=== PATIENT | female | born 1970 | race Caucasian/White ===

== ENCOUNTER → 2017-10-20 10:05 | Outpatient (CLI) | payer OTHER, SELFPAY ==
[2017-10-20 12:13] LABS: Color, Urine Yellow (Yellow); Glucose, Dipstick Normal (Normal); Ketone-Dipstick Negative (Negative); Leukocyte Esterase-Dipstick 100 /ul (Negative); Nitrite-Dipstick Negative (Negative); Occult Blood-Urine 10 /ul (Negative); Protein-Dipstick Negative (Negative); Urine Bilirubin Dipstick Negative (Negative); Urine Clarity Sl. Cloudy (Clear); Urine Urobilinogen Normal (Normal)
[2017-10-20 12:24] LABS: Protein, Urine (Random) 12.8 mg/dL (<11.9); Protein:Creat Ratio 151 mg/g CRE (0-200)
[2017-10-20 12:30] LABS: Absolute Lymphocyte Count 1.62 X10^3/ul (0.83-4.51); Absolute Neutrophil Count 3.9 X10^3/uL (2.0-7.7); Basophil# 0.02 X10^3/uL; Basophil% 0.3 % (0-1); Eosinophil# 0.25 X10^3/uL; Eosinophils% 4.1 % (0-5); Hematocrit 39.7 % (37-47); Hemoglobin 12.6 g/dl (12.0-15.0); Lymphocyte # 1.62 X10^3/ul (4.0); Lymphocyte % 26.6 % (19-41); Mean Corp Hgb Conc 31.7 g/gl (32-36); Mean Corpuscular Hgb 30.7 pg (27.0-32.0); Mean Corpuscular Volume 96.8 fL (81-99); Mean Platelet Vol. 10.8 fl (6.2-12.0); Monocyte# 0.33 X10^3/uL; Monocyte% 5.4 % (0-10); Neutrophil # 3.86 X10^3/uL (2.7-7.7); Neutrophil % 63.4 % (47-70); Platelet Count 213 K/mm3 (150-450); RBC Distribution Width CV 13.4 % (11.6-14.6); RBC Distribution Width SD 46.9 fl (35.1-43.9); White Blood Count 6.1 K/mm3 (4.4-11.0)
[2017-10-20 12:31] LABS: Erythrocyte Sedimentation Rate 16 mm/hr (0-20); POSITIVE COUNT NO; POSITIVE DIFFERENTIAL NO; POSITIVE MORPHOLOGY NO
[2017-10-20 12:33] LABS: ALB/GLOB Ratio 0.8 RATIO (0.9-2.4); AST(SGOT) 24 U/L (15-37); Alanine Aminotransfer ALT/SGPT 28 U/L (13-56); Albumin, Serum 3.3 g/dL (3.2-5.0); Alkaline Phosphatase 47 U/L (45-117); Anion Gap 7 (5-15); BUN 11 mg/dL (7-18); BUN/Creat Ratio 15.6 RATIO (10-20); CRP 5.61 mg/L (0.0-3.0); Calcium,Total 8.9 mg/dL (8.5-10.1); Chloride 106 mmol/L (98-107); EST Glomerular Filtration Rate 94 mL/min (>60); Est Glom Filt Rate - Afr Amer 114 mL/min (>60); Globulin 4.1 g/dL (2.2-4.2); Glucose 69 mg/dL (74-106); Potassium 3.9 mmol/L (3.5-5.1); Protein, Total 7.4 g/dL (6.4-8.2); Rheumatoid Factor < 10.0 IU/mL (<15); Sodium Level 141 mmol/L (136-145)
[2017-10-23 03:07] LABS: Complement C3 179 mg/dL (82-167)
[2017-10-23 10:45] LABS: CCP IgG Antibodies 10 units (0-19); HEPATITIS B SURFACE AG Negative (Negative); Hep B Surface Antibodies Non Reactive (.); Hep C Antibodies <0.1 s/co ratio (0.0-0.9)
[2017-10-23 20:09] LABS: Anti-Centromere B Ab <0.2 AI (0.0-0.9); Anti-Jo <0.2 AI (0.0-0.9); Anti-Scleroderma-70 AB <0.2 AI (0.0-0.9); RNP Ab 0.2 AI (0.0-0.9); SJOGREN'S Anti-SS-A test < 0.2 AI (0.0-0.9); SJOGREN'S Anti-SS-B test < 0.2 AI (0.0-0.9); Smith Ab <0.2 AI (0.0-0.9)
[2017-10-24 15:41] LABS: ANTINUCLEAR ANTIBODIES DIRECT Negative (Negative)
[2017-10-24 15:42] LABS: Anti-dsDNA Ab 6 IU/mL (0-9)
== END ==
PROVIDERS: Family Provider Family Medicine; PCP Family Medicine; Visit Provider Internal Medicine Rheumatology
DX: M06.4 Inflammatory polyarthropathy (principal); M79.7 Fibromyalgia; M51.37 Other intervertebral disc degeneration, lumbosacral region
CPT/HCPCS: 36415; 80053; 81002; 82570; 84156; 85025; 85652; 86038; 86140; 86160; 86200; 86225; 86235; 86431; 86706; 86803; 87340

== ENCOUNTER → 2018-01-30 14:25 | Outpatient (CLI) | payer OTHER, SELFPAY | PROVIDERS: Family Provider Family Medicine; PCP Family Medicine; Visit Provider Family Medicine | DX: E55.9 Vitamin D deficiency, unspecified (principal) | CPT/HCPCS: 36415; 82306 ==

== ENCOUNTER 2018-09-28 09:00 | Outpatient (RCR) | payer OTHER, SELFPAY ==
--- NOTE | 2018-08-08 10:57 | HP.PTEVAL_ITS ---
Patient's Visit Information RAMYA TAYLOR is a 48 year old F referred to Physical Therapy by CLARKE CORDOVA with a diagnosis of B shoulder and R knee pain vertigo. Date of Evaluation: 08/08/18 Physical Therapist: Ricky Casas, NATET, OCS, CSCS - Visit Plan Frequency: 3x /Week Duration: 4-6 Weeks Plan: 3x/week fro 3-6, start in pool for postural and B shoulder ROM flexiona dn IR, also B LE strength with emphasis on R knee and hip . Progress to I as patient is member adn may want land therapy after being in pool. Monitor need for postiional vertigo interventions. - Subjective Findings: Had veertigo for a couple weeks, went to ENT yesterday and did Eply and seems better. Was spinning all the time when she got out of bed or looked up or down or rolled. It seems to be gone since yesterday. Has history of migrainous vertigo and auditory migraines but this was different. Was on anti nausea meds but it has been 3 days since. Doesn't fall but doesn't feel real steady either. H/o proprioception problem but not lately.. Iv'e always been wired a little wierd. H/o FM. Also has B shoulder pain R>L for a few years. It feels weak. Reaching across body to pull shirt off hurts. Feels OK at neutral position. Likes support under arms. 1/10 is constant pain B, worse in the laast two years. 8/10 with lying on bed on side. Has had adjustments for a couple years to shoulders whcih helps some. Doing some rubber band stuff that she learned prior. Not improving. Hands have swollen for 18 months and has seen oncologist and rhumatologist adn painter sign maintenance but no rhumatoid factors in blood. Hasn't been able to lie on side due to vertigo adn hands haven't swollen. Shoulders don't feel better. No numbness or tingling but very weak. Hard to open jars. R knee was tweaked sledding down hill in May. Pulled leg out of lucia and felt tweak in R medial knee. Now whole knee hurts under knee cap. Adjustments at chiropractors help a little. Walked alot in [place] last week and had it wrapped which was worse. Hard to go up steps in [place] but all the walking made it better eventually. Sleep is interrupted due to shoulder pain. Rolls in bed causes knee pain but minimal lately due to vertigo. 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 knee hurts more sitting at [employer] Shoulders are not effected by jobs. Knee has been limiting at work in the past. Hobbies: work. Basic aDLS are OK. - Pain B shoulders Pain Intensity (Out of 10): 1 Pain Intensity Range: 1, 8 R medial knee pain Pain Intensity (Out of 10): 3 Pain Intensity Range: 0, 7 - Objective Posture is forward head and shoulders. Trasnfers adn gait are normal as is balance today. - B hallpike kalina and - roll test today. Did treat with R Maximiliano due to some dizzyness whcih was then abolished. c/s aROM WFL and hesitant to look up and down due to previous dizzyness but no pain. B shoulder aROM WFL but pain end range of flexion and tight in shoulders, also pain end range of IR on Right. strength shoulder 4- and only pain with flexiona dn ext rotation. reflexes 2/3 bi and tri and patella and achilles. sensation UE and LE WNL to gross light touch. + HK and neer on R, - ext rotation leg B, - labral b. B knee ROM WFL, pain end range of R knee ext adn flexion with OP, comfortable at rest. L knee WNL. reflexes 2/3 patella and achilles. Strength R knee 4/5 ext adn flexion , flexion gives medial knee pain, L knee 4+. Hip 4/5 strength B without pain, ankles 5/5 without pain. pecs B and quads mod tight, HS mod tight at -25 90/90 test B. - nt drawer and lachmans on R, - vlagus and varus, + bounce home R, - patellar grind but hesitant to contract R quad. No lag with SLR. - Balance Scores Functional Gait Assessment Score: 30 % Disability: 0 CATSIB Score (Max score 120 seconds): 120 - Goals Goal 1:: Full aROM shulders without pain, and knee end range motion without pain. Goal Time Frame: 4-6 Weeks Goal 2:: patient feel 75% overall with knee and shoulder pain and 100% abolishment of vertigo. Goal Time Frame: 4-6 Weeks Goal 3:: I approp HEP pool vs ex to maintain improvements without excess fatigue. Goal Time Frame: 4-6 Weeks Goal 4:: Pateint sleep without waking due to pain Goal Time Frame: 4-6 Weeks - Rehabilitation Potential Physical Therapy Diagnosis: Vertigo seems resolved, B shoulder pain impingement vs inflammatory factor, and R knee pain possibly meniscal in nature. Rehabilitation Potential: Fair - Anticipated Interventions Patient/Client Instruction: Educate patient on: Condition, Plan of Care For the Purpose of:: To decrease pain, To increase tolerance to activity/condition/position, To improve ability of physical actions for home/community/work/leisure Therapeutic Exercise to Include: Strength training, Flexibilty training, In an aquatic setting, Passive ROM, Active ROM For the Purpose of:: To decrease pain, To increase ROM, To increase tolerance to activity/condition/position, To improve ability of physical actions for home/community/work/leisure Manual Therapy Techniques to Include: Passive ROM Thank you for the opportunity to evaluate your patient. For Medicare and Medicare HMO plans, please review the plan of care and approve it. It will need to be FAXED BACK to us at [phone] for Medicare purposes. For Medicare only, by signing this I certify the plan of care. Please let me know if there are questions or concerns regarding this plan of care. Physician Signature: Date:____
--- NOTE | 2018-08-30 09:31 | HP.PTREVAL ---
CLARKE ART, It has been my pleasure to treat RAMYA TAYLOR over the last 5 visits for B shoulder and R knee pain vertigo. Please see the progress note below for an update on the physical therapy plan of care! Subjective: Enjoy the water. R knee is a lot better. L shoulder some better and R slightly better and can lift it a little easier. Times for pool therapy are not conducive to her schedule. Needs to implement land based ex as able. F/u with doctor 3x/week. R knee 85% better, L shoulder 50% and R shoulder 35%. pain in last week was in R shoulder 9/[address] waking up that way. Objective/Function: Full aROM R knee adn B shoulders. Some pain at end range of IR at both shoulders and elevation R>L. Knee rOM is fulla nd painfree. Subjectively improved but not I with exercises yet. Plan Plan: 2x/week for 3 weeks continue pool plan as she missed many visits. Needs to emphasiza postural, RC, scapular and LE stergnth and progress to I as she has a pool at home that she can continue in end September. Will consider machine based strength after I in pool. Goals Goal 1:: Full aROM shulders without pain, and knee end range motion without pain. Goal Time Frame: 4-6 Weeks Goal Progress: Progressing Goal 2:: patient feel 75% overall with knee and shoulder pain and 100% abolishment of vertigo. Goal Time Frame: 4-6 Weeks Goal Progress: Progressing Goal 3:: I approp HEP pool vs ex to maintain improvements without excess fatigue. Goal Time Frame: 4-6 Weeks Goal Progress: Progressing Goal 4:: Pateint sleep without waking due to pain Goal Time Frame: 4-6 Weeks Goal Progress: Progressing Anticipated Interventions Patient/Client Instruction: Educate patient on: Condition, Plan of Care For the Purpose of:: To decrease pain, To increase tolerance to activity/condition/position, To improve ability of physical actions for home/community/work/leisure Therapeutic Exercise to Include: Strength training, Flexibilty training, In an aquatic setting, Passive ROM, Active ROM For the Purpose of:: To decrease pain, To increase ROM, To increase tolerance to activity/condition/position, To improve ability of physical actions for home/community/work/leisure Manual Therapy Techniques to Include: Passive ROM Please do not hesitate to contact me at [phone] by phone or if you have questions or concerns regarding this new plan of care! Sincerely, Ricky Casas, DPT, OCS, CSCS
--- NOTE | 2018-09-28 09:28 | HP.PTDCSUM ---
HP - PT D/C Summary It has been my pleasure to treat RAMYA TAYLOR under orders from CLARKE CORDOVA, for the diagnosis of B shoulder and R knee pain vertigo for a total of 9 visit(s). Discharge Date: 09/28/18 Please see the following information for a summary of their discharge status. - Subjective Subjective: Doing exercises at home. R not as improved as left . Left 85% better adn right 50%. Pain in R shoulder is intermittent but to 8/10 with elevating or holding it out in front. Pain goes away after that activitiy. Doing pool exercises in her pool at home and rubber band strengthening at home daily. To doctor later today. Sleep is OK - Pain B shoulders Pain Intensity (Out of 10): 0 R medial knee pain Pain Intensity (Out of 10): 0 - Overall Improvement % Improvement: 60 - Objective Objective/Function: Full AROM but pain 8/10 end range Actvie flexion and IR, much less pain passively. Strength is 4/5 flexiona dn abd B. IR/ER 4/5. Moving functionally very well. Much better overall but still weak L >R - Goals Goal 1:: Full aROM shulders without pain, and knee end range motion without pain. Goal Progress: Progressing Goal 2:: patient feel 75% overall with knee and shoulder pain and 100% abolishment of vertigo. Goal Progress: Progressing Goal 3:: I approp HEP pool vs ex to maintain improvements without excess fatigue. Goal Progress: Goal Met Goal 4:: Pateint sleep without waking due to pain Goal Progress: Goal Met - Plan Plan: D/C - D/C Information Discharge Comments: Pt to continue ex on own in pool and with band and in gym. If there are questions or concerns regarding this patient's physical therapy, please feel free to call me at [phone]. Thank you for the referral of this patient. Sincerely, Ricky Casas, DPT, OCS, CSCS
== END 2018-09-28 19:00 | disposition home or self-care (01) ==
LOC: PT 09:00
PROVIDERS: Family Provider Family Medicine; PCP Family Medicine
DX: M25.561 Pain in right knee (principal); M25.511 Pain in right shoulder; M25.512 Pain in left shoulder; M25.612 Stiffness of left shoulder, not elsewhere classified; M25.619 Stiffness of unspecified shoulder, not elsewhere classified
CPT/HCPCS: 97113; 97162; 97530

== ENCOUNTER 2019-01-25 19:42 | Observation (INO) | payer OTHER, SELFPAY ==
[2019-01-25 19:43] VITALS: BP 119/43; PULSE 81; RESP 16; TEMP 36.7; O2SAT 98; BMI 30.4
[2019-01-25] MEDS: morphine 8 MG/ML Syringe SC (20:25)
[2019-01-25] MEDS: morphine 10 MG/ML Syringe 4 MG SC (21:20)
--- NOTE | 2019-01-25 21:50 | RAD_ITS ---
HISTORY:PAIN, NKI PAIN, NKI COMPARISON: None FINDINGS: # of images incl. paperwork: 2 XR Shoulder Min 2 Views: Left BONE AND JOINTS: No acute fracture or subluxation. Calcifications seen in the region of the rotator cuff insertion suspect for calcific tendinitis SOFT TISSUES: Unremarkable. No radiopaque foreign body. RAD/Shoulder min 2 Views IMPRESSION: Suspect calcific tendinitis at 2206 Reported and signed by: Lynda Estrada DO Electronically Signed: Lynda Estrada DO at 22:04 EDT Tel , Service support ,
--- NOTE | 2019-01-25 22:30 | ED.DCSUM_ITS ---
History of Present Illness Chief Complaint: Upper Extremity Injury Narrative: Patient presenting to the emergency department secondary to left shoulder pain. Patient reports that over the course of approximately the last year she has been dealing with pain in her left shoulder. She actually went through a prolonged c ourse of physical therapy, get somewhat better. Patient states that recently she was carrying something in her left hand and felt as if she made it worse. There was not a specific pop or injury associated with it, but today she is having such severe pain that she feels that she is basically unable to move her left arm. No radiation of the pain really. No numbness or weakness associated with it. Patient did take some pain medication at home did not really seem to alleviate her symptoms. Review of systems otherwise negative. Past Medical History - Allergies and Home Meds Allergies/Adverse Reactions: Allergies amoxicillin trihydrate [From Augmentin] Adverse Reaction (Verified 01/25/19 19:44) Vomiting cefuroxime axetil [From Ceftin] Adverse Reaction (Verified 01/25/19 19:44) Vomiting levofloxacin [From Levaquin] Adverse Reaction (Verified 01/25/19 19:44) Vomiting potassium clavulanate [From Augmentin] Adverse Reaction (Verified 01/25/19 19:44) Vomiting Past Medical History: - - Fibromyalgia Smoking Status: Never smoker - Family History Maternal Family History: Reports: - - Some vestibular problem of dizziness Review of Systems All systems negative except as indicated General: Denies: Fever Musculoskeletal: Reports: Extremity Pain Physical Exam Vital Signs/Narrative: Vital Signs Temp Pulse Resp BP Pulse Ox 01/25/19 19:43 98.1 F 81 16 119/43 L 98 Inital Vital Signs reviewed: Yes General: Well nourished, Well developed, No Acute Distress Head: Normocephalic, Atraumatic Eyes: Perrl, EOMI ENT: Moist mucous membranes, No rhinorrhea Neck: Supple, Nontender, - - Normal range of motion, nontender Cardiovascular: Regular rate, Regular rhythm, No murmurs, - - Normal radial pul ses Respiratory: No distress, CTA bilaterally, Chest nontender Abdomen: Soft, Nontender, Nondistended, Normal bowel sounds Extremities: - - Left shoulder exam shows tenderness palpation of the anterior and posterior joint line with no evidence of warmth or erythema over the joint. Limited range of motion secondary to pain. Unable to assess the patient's rotator cuff due to limited range of motion Skin: Normal color Neurological: Alert, Oriented x3 Psychological: Normal affect Diagnostic/Tx/Re-eval Chest X-Ray - ED: - - Left shoulder x-ray 2 views by my personal interpretation as well as radiology shows calcific tendinosis - EKG Initial EKG Interpretation: - - A. fib with a ventricular rate of [address] changes, no evidence of ST elevation, diffuse T wave flattening. - Medical Decision Making Patient presented secondary to left shoulder pain. This seems clearly musculoskeletal, patient was refusing to get x-rays until she was medicated. She was given 8 mg of subcutaneous morphine, and was still having a significant amount of pain after she was allowed to sit for about 45 minutes. She was given a subsequent 4 mg. Ultimately she had some improvement of her pain to the point where we were able to get x-rays which demonstrated evidence of calcific tendinosis. Patient at this time was going to be dispositioned to home with a course of Percocet for treatment of pain and follow-up with orthopedics. When the patient was transitioning from the bed to get up to be discharged, she started to suddenly feel significantly lightheaded, passed out, and vomited all over the place. IV was established laboratory studies were obtained an EKG was obtained at that point, patient was actually found to be in a new onset of atrial fibrillation. Patient's laboratory work-up including CBC chemistry and troponin were found to be negative. Due to the patient's new onset of atrial fibrillation I believe she requires admitted. I will discuss this with the hospitalist. ED Disposition - Plan for ED Patient: Disposition: Acute Care [facility] Diagnosis: Calcific tendonitis, Afib, Syncope
--- NOTE | 2019-01-25 23:04 | EKG12_ITS ---
Test Reason : DYSRHYTHMIA Blood Pressure : / mmHG Vent. Rate : 097 BPM Atrial Rate : 097 BPM P-R Int : 000 ms QRS Dur : 086 ms QT Int : 342 ms P-R-T Axes : 000 047 -76 degrees QTc Int : 434 ms Atrial fibrillation Nonspecific ST and T wave abnormality Abnormal ECG Confirmed by BRUNILDA FUENTES, IRENA ([id number]), loan expeditor DIONY CONTRERAS ([id number]) on 01/28/2019 8:53:03 AM Referred By: MR Confirmed By:IRENA WORLEY MD
[2019-01-25] MEDS: Ondansetron ODT 4 MG Tablet PO (23:14)
[2019-01-25 23:15] VITALS: BP 124/95; PULSE 100; RESP 16; O2SAT 96
[2019-01-25] MEDS: 0.9% Normal Saline 1,000 ML 1000 ML IV (23:41)
[2019-01-25] MEDS: Ondansetron 4 MG/2 ML Vial IV (23:42)
[2019-01-25 23:44] LABS: Absolute Lymphocyte Count 2.99 X10^3/uL (0.83-4.51); Basophil# 0.06 X10^3/uL; Basophil% 0.6 % (0-1); Eosinophil# 0.59 X10^3/uL; Eosinophils% 6.2 % (0-5); Hemoglobin 13.3 g/dL (12.0-15.0); Lymphocyte # 2.99 X10^3/ul (4.0); Lymphocyte % 31.2 % (19-41); Mean Corp Hgb Conc 32.4 g/dL (32-36); Mean Corpuscular Hgb 31.4 pg (27.0-32.0); Mean Corpuscular Volume 96.9 fL (81-99); Mean Platelet Vol. 10.5 fl (6.2-12.0); Monocyte% 9.4 % (0-10); NRBC Flagged by Analyzer 0 % (0-5); Neutrophil # 5.01 X10^3/uL (2.7-7.7); Neutrophil % 52.3 % (47-70); Platelet Count 209 K/mm3 (150-450); RBC Distribution Width CV 12.7 % (11.6-14.6); RBC Distribution Width SD 45.2 fl (35.1-43.9); Red Blood Count 4.23 M/mm3 (4.2-5.4); White Blood Count 9.6 K/mm3 (4.4-11.0)
[2019-01-26] VITALS (20 sets, daily range): BP systolic 99–126; BP diastolic 65–90; PULSE 94–135; RESP 14–23; TEMP 36.8–37.1; O2SAT 95–99; BMI 32.9
[2019-01-26 00:06] LABS: Anion Gap 7 (5-15); BUN 15 mg/dL (7-18); Chloride 108 mmol/L (98-107); Creatinine, Serum 0.75 mg/dL (0.55-1.02); EST Glomerular Filtration Rate 87 mL/min (>60); Est Glom Filt Rate - Afr Amer 105 mL/min (>60); Estimated Creatinine Clearance 91.53 ml/min; Glucose 147 mg/dL (74-106); Potassium 3.8 mmol/L (3.5-5.1); Sodium Level 142 mmol/L (136-145)
[2019-01-26] MEDS: proMETHazine 25 MG/ML Syringe 12.5 MG IM (00:28)
--- NOTE | 2019-01-26 00:34 | HP.PCM_ITS ---
Problem List (1) Afib Status: Acute History of Present Illness Date of Admission: 01/26/19 Chief Complaint: left shoulder pain The patient is a 48 year old F significant history of chronic pancreatitis; and autoimmune disease who presented to the emergency department with excruciating left shoulder pain that started about 4 days ago. Her pain increases with mild activity and improves somewhat with rest. She has had this pain for 2 years and sees a chiropractor. The chiropractor referred her to physical therapy that she has been doing at [facility]. Indeed she has a bilateral shoulder pain but it is the pain at the left shoulder that has flared up. Patient is scheduled to see an orthopedic surgeon. At the emergency department x-ray was suspicious for calcific tendinitis. Patient received morphine sulfate 12 mg by subcutaneous route. Thereafter the patient passed out; vomited and went into A. fib. Past Medical History Medical History: Medical History (Last Reviewed 01/26/19 @ 05:40 by Maximus Ibarra MD) Chronic pancreatitis K86.1 Allergies amoxicillin trihydrate [From Augmentin] Adverse Reaction (Verified 01/25/19 19: 44) Vomiting cefuroxime axetil [From Ceftin] Adverse Reaction (Verified 01/25/19 19:44) Vomiting levofloxacin [From Levaquin] Adverse Reaction (Verified 01/25/19 19:44) Vomiting potassium clavulanate [From Augmentin] Adverse Reaction (Verified 01/25/19 19:44) Vomiting Home Medications: Ambulatory Orders Medication Instructions Recorded Hydrocodone Bitart/Apap 5-325 1 tab PO Q6H PRN PRN 3 Days #12 tab 01/25/19 [[place] 5MG-325MG] Surgical History: tonsillectomy, - - section Lives: Spouse/ Significant Other Smoking Status: Never smoker - *Family History Maternal History Items: Cancer - breast, - - Some vestibular problem of dizziness Paternal History Items: - - Patient does not know her father and she does not know her paternal medical history. Review of Systems Constitutional: Denies: Chills, Fever, Weight Change HEENT: Denies: Head Aches, Sinus Congestion, Sinus Drainage Cardiovascular: Reports: Light Headedness, Syncope. Denies: Chest Pain, Palpitations Respiratory: Denies: Cough, Shortness of breath at rest, Sputum production Gastrointestinal: Reports: Nausea, Vomiting. Denies: Abdominal Pain Genitourinary: Denies: Dysuria Musculoskeletal: Reports: Joint Pain, Joint Tenderness, Shoulder Pain Skin: Denies: Rash, Wounds Neurological: Denies: Numbness, Tingling, Focal weakness Psychiatric: Denies: Anxiety, Depression, Homicidal Ideations, Suicidal Ideations Hematologic/ Lymphatic: Denies: Easy Bruising, Easy Bleeding VTE Information - Inpt Only VTE Present on Admission: No VTE Mechan Device Prophylaxis: None VTE Pharm Prophylaxis ordered?: Yes Patient Problems: Active and Suspected Problems Calcific tendonitis (Acute) Afib (Acute) Syncope (Acute) - Physical Exam General: Alert, Oriented x3, Cooperative HEENT: Atraumatic, PERRLA, EOMI, Normocephalic Neck: Supple, No JVD, Negative Carotid Bruits Lungs: Clear to auscultation, Normal air movement, No rhonchi, No wheeze, No rales Cardiovascular: Normal S1, Normal S2, No murmurs, Irregular Rate, Tachycardic Abdomen: Bowel Sounds Present, Soft, Non Tender Extremities: No edema, Capillary Refill Less than 3 Seconds, Tenderness - left shoulder Skin: No rashes, No breakdown Musculoskeletal: Tenderness - left shoulder Neurological: Cranial nerves II-XII grossly intact Psych/Mental Status: Anxious Vital Signs Temp Pulse Resp BP Pulse Ox 98.1 F 100 16 124/95 H 96 01/25/19 19:43 01/25/19 23:15 01/25/19 23:15 01/25/19 23:15 01/25/19 23:15 Oxygen Delivery Method Room Air Weight: 90.718 kg Body Mass Index (BMI) 30.4 Laboratory Tests Past 24 Hrs 01/25/19 01/25/19 23:35 23:35 WBC 9.6 RBC 4.23 Hgb 13.3 Hct 41.0 MCV 96.9 MCH 31.4 MCHC 32.4 RDW Std Deviation 45.2 H RDW Coeff of Xavier 12.7 Plt Count 209 MPV 10.5 Immature Gran % (Auto) 0.300 Neut % (Auto) 52.3 Lymph % (Auto) 31.2 [place] % (Auto) 9.4 Eos % (Auto) 6.2 H Baso % (Auto) 0.6 Absolute Neuts (auto) 5.0 Absolute Lymphs (auto) 2.99 Nucleated RBC % 0 Sodium 142 Potassium 3.8 Chloride 108 H Carbon Dioxide 27.0 Anion Gap 7 BUN 15 Creatinine 0.75 Estim Creat Clear Calc 91.53 Est GFR (MDRD) Af Amer 105 Est GFR (MDRD) Non-Af 87 BUN/Creatinine Ratio 20.0 Glucose 147 H Calcium 9.0 Troponin I < 0.015 Assessment/Plan All Active Problems Calcific tendonitis (Acute) Afib (Acute) Syncope (Acute) The patient is a 48 year old F significant history of chronic pancreatitis; and autoimmune disease who presented to the emergency department with excruciating left shoulder pain; and radiographic imaging concerning for calcific tendinitis and who passed out and vomited after morphine subcutaneous injection and was found to be in atrial fibrillation. Atrial fibrillation with rapid ventricular response. Initially patient was in controlled A. fib but later she went into A. fib with rapid ventricular response. Patient thinks that her A. fib is because of the pain and declined any rate controlled medications. Her [id number] score is 1 (female); 0.6% stroke risk per year. Will start patient on aspirin. We will get an echocardiogram. Magnesium level returned unremarkable. TSH was elevated; will check free T4. Calcific tendinitis of the right shoulder PRN [place] ordered. Which are away from morphine because of nausea vomiting and A. fib. PRN Zofran and bowel protocol ordered. Orthopedic consult. Syncope Likely because of A. fib Management as in A. fib. DVT prophylaxis Subcutaneous Lovenox Code Visit Inpatient E&M: 95140 Init Hosp L3
--- NOTE | 2019-01-26 02:49 | ECHOD_ITS ---
Reason For Study: A. fib Procedure This was a 2D Doppler, Color Flow transthoracic echocardiogram. Patient scanned supine due to severe left shoulder pain. Exam performed portable in patient room. Left Ventricle Normal LV size. Left ventricular systolic function is normal. The estimated ejection fraction is 60 %. Unable to assess diastolic dysfunction due to arrhythmia. No regional wall motion abnormalities noted. Right Ventricle Normal RV size. Normal systolic function. Atria Normal left atrium. Normal right atrium. Mitral Valve Normal mitral valve. Tricuspid Valve Normal tricuspid valve. Mild tricuspid valve insufficiency. Pulmonary artery systolic pressure is 20 mmHg. Aortic Valve The aortic valve is not well visualized. Pulmonic Valve Normal pulmonic valve. Great Vessels Normal aortic root. The pulmonary artery is normal size. Normal inferior vena cava. Pericardium/Pleural No pericardial effusion. MMode/2D Measurements & Calculations LVIDd: 4.7 cm IVSd: 0.80 cm Ao root diam: 3.1 cm LVIDs: 2.9 cm LVPWd: 0.85 cm RVDd: 3.0 cm FS: 37.3 % LAV(MOD-bp): 34.1 ml LA A4 area: 12.2 cm2 LA dimension(2D): 3.6 cm LAV(MOD-bp) Indexed: 16.2 ml/m2 LAV(MOD-sp2): 41.4 ml LAV(MOD-sp4): 26.6 ml RA A4 area: 11.5 cm2 Doppler Measurements & Calculations MV E max kingsley: 81.8 cm/sec Ao V2 max: 139.0 cm/sec LV V1 max: 112.1 cm/sec Ao max P.8 mmHg LV V1 max P.0 mmHg PA V2 max: 94.3 cm/sec TR max kingsley: 201.2 cm/sec TR max P.3 mmHg Interpretation Summary Normal LV size. Left ventricular systolic function is normal. The estimated ejection fraction is 60 %. Unable to assess diastolic dysfunction due to arrhythmia. Mild tricuspid valve insufficiency. Ordering Physician: Maximus Ibarra Referring Physician: Miguel Pritchett Performed By: Aixa Bush RDCS
[2019-01-26] MEDS: 0.9% Normal Saline 1,000 ML 75 ML IV (03:36)
[2019-01-26 03:38] LABS: Magnesium 2.2 mg/dL (1.6-2.6)
--- NOTE | 2019-01-26 05:52 | NURSING ---
I discussed with Dr. Ibarra patient's increasing heart rate and A-Fib RVR. Dr. Ibarra stated that the patient told him that she does not want any rate control drugs. I talked to the patient about this and she stated that she was prescribed nadolol in the past for occipital migraines and it caused muscle pain. I discussed this with the patient and she is agreeable to trying cardizem for rate control. I notified Dr. Ibarra of this and he stated that he will order the cardizem bolus. Mili tellez RN notified as well.
[2019-01-26] MEDS: dilTIAZem 25 MG/5 ML Vial 10 MG IV BOLUS (05:59)
[2019-01-26 06:41] LABS: T4 Free Direct 1.09 ng/dL (0.76-1.46)
[2019-01-26] MEDS: Ondansetron 4 MG/2 ML Vial IV (06:41)
--- NOTE | 2019-01-26 08:30 | PN_ITS ---
Progress Note This is a 48 years old female patient presented to the emergency room because of left shoulder pain. She had a history of left shoulder pain for more than 2 years, has been undergoing physical therapy as outpatient and her pain resolved. The last 4 to 6 weeks, she started having this shoulder pain again which got worse yesterday and she came to the emergency department. This morning, she states that her shoulder pain improved but still there. She denies any chest pain or shortness of breath. She did mention that she has been having pa lpitations and irregular heartbeats for the last 2 years but apparently, no one paid attention to it. Yesterday, she received 12 mg of morphine and when she stood up, she passed out. This morning, she is still in A. fib, heart rate is fluctuating significantly, blood pressure stable. Her EKG revealed A. fib, no acute ischemic changes. Troponin was negative. X-ray of the left shoulder revealed suspected calcific tendinitis, no fractures or dislocations. 2D echocardiogram ordered. This morning at 6 AM, she received 1 dose of IV Cardizem bolus but heart rate remained high. Plan: Start metoprolol 12.5 mg p.o. twice daily, awaiting orthopedic surgery recommendations, cardiology consult.
--- NOTE | 2019-01-26 09:35 | CON.PCM_ITS ---
Problem List (1) Afib Status: Acute Qualifiers: Atrial fibrillation type: paroxysmal Qualified Code(s): I48.0 - Paroxysmal atrial fibrillation (2) Vitamin D deficiency Status: Chronic (3) Fibromyalgia Status: Chronic (4) Chronic pancreatitis Status: Chronic (5) Intermittent diarrhea Status: Chronic (6) Vitamin B12 deficiency (dietary) anemia Status: Acute (7) GERD (gastroesophageal reflux disease) Status: Chronic Reason for Consult Date of Consultation: 01/26/19 Reason for Consultation: PAROXYSMAL ATRIAL FIB History of Present Illness: The patient is a 48 year old F with medical history significant for to have history of arthritis involving the left shoulder informs me that she has seen 2 different rheumatologists in clinic clinic in the past she was advised to consider dog start taking methotrexate by one musical instrument supervisor but she was reluctant to consider that option as her ANAs were unremarkable and subsequently went to see a second musical instrument supervisor who advised her not to contradict any disease modifying agents but recommended her to undergo water exercises. Patient was also referred to see a functional medicine at [facility] who diagnosed her to have chronic pancreatitis and fibromyalgia. Complaint for the last 2 to 3 days prior to this hospitalization she was having increased flareup of her pain the left shoulder joint and last evening when her came home she was quite sick pain and patient was brought to the emergency room. In the ER patient received a total of 8 mg of morphine subcutaneously and shortly thereafter when she was able to be discharged home she had an episode of near syncope and the EKG showed evidence of atrial fibrillation with ventricular response close to 92-100 beats a minute and for this reason she was admitted to the hospital for further work-up of near syncope and new atrial fibrillation. History of having palpitations intermittently for the last few years but there is no formal diagnosis of atrial fibrillation made in the past she informs me that she did had a stress test at 20 years of age and a Holter at that time as she was having symptoms of palpitations and that was when she moved from [facility] to [place] and her father was sick and that made her quite anxious with the stress of situation causing her palpitations . 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 Prior episodes of syncope or near syncopal episodes admits that she does have symptoms of diarrhea in the past which was the cause for diagnosing IBS but subsequently that was rediagnosed as congruent chronic pancreatitis and patient has been taking pancreatic supplements for the last few weeks that is given through the functional medicine at [facility] and with that her bowels are more regulated she informed him that she was diagnosed to have low vitamin B12 as well as low vitamin D and has been taking multiple supplements that was recommended from the functional medicine clinic Past Medical History Allergies/Adverse Reactions: Allergies amoxicillin trihydrate [From Augmentin] Adverse Reaction (Verified 01/25/19 19:44) Vomiting cefuroxime axetil [From Ceftin] Adverse Reaction (Verified 01/25/19 19:44) Vomiting levofloxacin [From Levaquin] Adverse Reaction (Verified 01/25/19 19:44) Vomiting potassium clavulanate [From Augmentin] Adverse Reaction (Verified 01/25/19 19:44) Vomiting Home Medications: Ambulatory Orders Medication Instructions Recorded Hydrocodone Bitart/Apap 5-325 1 tab PO Q6H PRN PRN 3 Days #12 tab 01/25/19 [[place] 5MG-325MG] Past Medical History (Chronic Problems): Chronic Problems (Last Reviewed 01/26/19 @ 05:40 by Maximus Ibarra MD) Vitamin D deficiency (Chronic) Fibromyalgia (Chronic) Chronic pancreatitis (Chronic) Intermittent diarrhea (Chronic) GERD (gastroesophageal reflux disease) (Chronic) Surgical History: tonsillectomy, - - section - *Family History Paternal History Items: - - Patient does not know her father and she does not know her paternal medical history. Maternal History Items: Cancer - breast, - - Some vestibular problem of dizziness Lives: Spouse/ Significant Other Smoking Status: Never smoker Tobacco Use: Non-smoker Objective: Vital Signs Temp Pulse Resp BP Pulse Ox 98.6 F 115 H 15 107/74 96 01/26/19 06:28 01/26/19 07:00 01/26/19 06:28 01/26/19 06:28 01/26/19 06:28 Oxygen Delivery Method Room Air Weight: 216 lb 7.903 oz Body Mass Index (BMI) 32.9 Intake and Output for Last 24 Hours 01/24/19 01/25/19 01/26/19 23:59 23:59 23:59 Intake Total 1120 / 1120 Balance 1120 / 1120 01/25/19 23:35: WBC 9.6, RBC 4.23, Hgb 13.3, Hct 41.0, MCV 96.9, MCH 31.4, MCHC 32.4, Plt Count 209, MPV 10.5, Immature Gran % (Auto) 0.300, Neut % (Auto) 52.3, Lymph % (Auto) 31.2, [place] % (Auto) 9.4, Eos % (Auto) 6.2 H, Baso % (Auto) 0.6, Absolute Neuts (auto) 5.0, Nucleated RBC % 0 01/25/19 23:35: Sodium 142, Potassium 3.8, Chloride 108 H, Carbon Dioxide 27.0, Anion Gap 7, BUN 15, Creatinine 0.75, Est GFR (MDRD) Af Amer 105, Est GFR (MDRD) Non-Af 87, BUN/Creatinine Ratio 20.0, Glucose 147 H, Calcium 9.0, Troponin I < 0.015 01/25/19 23:35: Magnesium 2.2 Rhythm: EKG: ECHO:Interpretation Summary Normal LV size. Left ventricular systolic function is normal. The estimated ejection fraction is 60 %. Unable to assess diastolic dysfunction due to arrhythmia. Mild tricuspid valve insufficiency. Stress Test: Cardiac Cath: PCI: CT Surgery: Holter monitor: EPS: PPM: CXR: Chest CT Scan: Assessment/Plan #1 atrial fibrillation Proxysmal-start the patient on long-acting Toprol-XL 50 mg once a day see how she responds to with her ventricular response and I do agree that she has lone atrial fibrillation and see no indication to start her on systemic oral anticoagulation. If her rate is well controlled remains in atrial fibrillation consider chemical cardioversion with IV ibutilide after assuring her serum potassium and magnesium levels are within normal limits. Her echocardiogram performed today showed normal systolic function with no significant valvular abnormalities and there is no evidence for mitral valve prolapse or mitral regurgitation. 2. arthritis of the left shoulder joint for which orthopedic surgery was consulted and pending at the time of this evaluation. 3. Pancreatitis -chronic stable Code Visit Office Visits / Consults: [id number] OV L5 Est
[2019-01-26] MEDS: Ketorolac 30 MG/ML Syringe IV (10:41)
[2019-01-26] MEDS: Metoprolol(XL)Succ 50 MG Tablet PO (11:02)
[2019-01-26] MEDS: Aspirin 81 MG TAB.CHEW PO (11:02)
[2019-01-26 11:39] LABS: Free T3 1.9 pg/mL (2.18-3.98); T4 Total, Thyroxin 11.3 ug/dL (4.8-13.9)
[2019-01-26] MEDS: Enoxaparin 40 MG/0.4 ML Syringe SC (12:55)
[2019-01-26] MEDS: Naproxen 250 MG Tablet PO ×2 (12:56→21:51)
[2019-01-26] MEDS: Famotidine 20 MG Tablet PO ×2 (12:56→21:51)
--- NOTE | 2019-01-26 16:44 | CON.PCM_ITS ---
Reason for Consult Date of Consultation: 01/26/19 History of Present Illness: The patient is a 48 year old female with a history of bilateral shoulder pain for greater than 2 years. Her left and right shoulder have both hurt severely intermittently. She has seen a chiropractor multiple times. In July 2018 she has been started at [facility]. She was doing some better. Patient has been diagnosed with fibromyalgia, autoimmune disease. She has been seen at the [facility] at a [facility]. 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 She states that her symptoms have been worse since December. She quit doing much therapy and started being more active. This past Monday after trying on some sweaters she developed severe left shoulder pain. By it was severe. She did have an appointment with our office in 2 and half weeks. She did have an appointment with Dr. Hook on Monday. Patient came into the hospital last evening with severe left shoulder pain. She was given morphine. She developed nausea and vomiting. She had a near syncopal episode. She was found to be in atrial fibrillation. She was admitted to the hospital. Orthopedics was consulted. Dr. Hook reportedly would not see the patient until tomorrow, Monday, despite being prior authorization nurse. Patient's called me directly. I was able to see the patient today. Ultimately the hospitalist change the consult to me. Patient denies fevers or chills. Notes her left shoulder is stiff and catches. Dates her pain was 20 out of 10. Currently much better. Seemingly the Toradol IV as well as p.o. naproxen have been helping. She states narcotics make her nauseated [] Past Medical History Past Medical History (Chronic Problems): Chronic Problems (Last Reviewed 01/26/19 @ 05:40 by Maximus Ibarra MD) Vitamin D deficiency (Chronic) Fibromyalgia (Chronic) Chronic pancreatitis (Chronic) Intermittent diarrhea (Chronic) GERD (gastroesophageal reflux disease) (Chronic) Medical History: Medical History (Last Reviewed 01/26/19 @ 05:40 by Maximus Ibarra MD) Chronic pancreatitis K86.1 Allergies amoxicillin trihydrate [From Augmentin] Adverse Reaction (Verified 01/25/19 19:44) Vomiting cefuroxime axetil [From Ceftin] Adverse Reaction (Verified 01/25/19 19:44) Vomiting levofloxacin [From Levaquin] Adverse Reaction (Verified 01/25/19 19:44) Vomiting potassium clavulanate [From Augmentin] Adverse Reaction (Verified 01/25/19 19:44) Vomiting Home Medications: Ambulatory Orders Medication Instructions Recorded Hydrocodone Bitart/Apap 5-325 1 tab PO Q6H PRN PRN 3 Days #12 tab 01/25/19 [[place] 5MG-325MG] Surgical History: tonsillectomy, - - section Lives: Spouse/ Significant Other Smoking Status: Never smoker Tobacco Use: Non-smoker - *Family History Paternal History Items: - - Patient does not know her father and she does not know her paternal medical history. Maternal History Items: Cancer - breast, - - Some vestibular problem of dizziness Review of Systems Constitutional: Reports: Weakness, Fatigue HEENT: Reports: Head Aches Cardiovascular: Reports: Palpitations Respiratory: Denies: Cough, Shortness of breath at rest, Sputum production Gastrointestinal: Reports: Nausea, Vomiting Genitourinary: Denies: Dysuria Musculoskeletal: Reports: Joint Pain, Shoulder Pain Skin: Denies: Rash, Wounds Neurological: Reports: Numbness Psychiatric: Denies: Anxiety, Depression, Homicidal Ideations, Suicidal Ideations Hematologic/ Lymphatic: Denies: Easy Bruising, Easy Bleeding Patient Problems: Active and Suspected Problems (Last Reviewed 01/26/19 @ 05:40 by Maximus Ibarra MD) Calcific tendonitis (Acute) Afib (Acute) Syncope (Acute) Vitamin B12 deficiency (dietary) anemia (Acute) Objective: Patient was seen with her present. Patient has pain on palpation of the left shoulder anteriorly laterally posteriorly. She has more tenderness posterior lateral. No bruising swelling or abnormal masses noted. Normal contour of the shoulders. Right shoulder has near full range of motion with some pain. Left shoulder has active forward elevation 10, external rotation 0. Passively I can forward elevate her 160. Passively I can externally rotate her 20. Negative drop arm test. She has weakness at the left shoulder because of pain. Mild weakness of the right shoulder because of pain. She had no pain at the elbow wrist or fingers. Normal sensation. Normal strength at the wrist finger and elbows. Normal pulses. No pain at the cervical spine. Mild bilateral trapezius pain. No instability noted at the shoulders. Negative sulcus sign. Laboratory work reviewed X-rays reviewed AP and lateral left shoulder shows rounded calcifications at the posterior lateral shoulder, rotator cuff region. No severe glenohumeral joint arthritis. No severe acromioclavicular joint arthritis. No obvious acute fractures or dislocations. Note from hospitalist reviewed - Physical Exam Vital Signs Temp Pulse Resp BP Pulse Ox 98.6 F 116 H 15 108/76 96 01/26/19 06:28 01/26/19 11:02 01/26/19 06:28 01/26/19 11:02 01/26/19 15:52 Oxygen Delivery Method Room Air Weight: 98.2 kg Body Mass Index (BMI) 32.9 Intake and Output for Last 24 Hours 01/24/19 01/25/19 01/26/19 23:59 23:59 23:59 Intake Total 1120 / 1120 Balance 1120 / 1120 Laboratory Tests Past 24 Hrs 01/25/19 01/25/19 01/25/19 23:35 23:35 23:35 WBC 9.6 RBC 4.23 Hgb 13.3 Hct 41.0 MCV 96.9 MCH 31.4 MCHC 32.4 RDW Std Deviation 45.2 H RDW Coeff of Xavier 12.7 Plt Count 209 MPV 10.5 Immature Gran % (Auto) 0.300 Neut % (Auto) 52.3 Lymph % (Auto) 31.2 [place] % (Auto) 9.4 Eos % (Auto) 6.2 H Baso % (Auto) 0.6 Absolute Neuts (auto) 5.0 Absolute Lymphs (auto) 2.99 Nucleated RBC % 0 Sodium 142 Potassium 3.8 Chloride 108 H Carbon Dioxide 27.0 Anion Gap 7 BUN 15 Creatinine 0.75 Estim Creat Clear Calc 91.53 Est GFR (MDRD) Af Amer 105 Est GFR (MDRD) Non-Af 87 BUN/Creatinine Ratio 20.0 Glucose 147 H Calcium 9.0 Magnesium 2.2 Troponin I < 0.015 TSH 7.40 H Free T4 Thyroxine (T4) Free T3 pg/dL 01/25/19 01/26/19 23:35 10:48 WBC RBC Hgb Hct MCV MCH MCHC RDW Std Deviation RDW Coeff of Xavier Plt Count MPV Immature Gran % (Auto) Neut % (Auto) Lymph % (Auto) [place] % (Auto) Eos % (Auto) Baso % (Auto) Absolute Neuts (auto) Absolute Lymphs (auto) Nucleated RBC % Sodium Potassium Chloride Carbon Dioxide Anion Gap BUN Creatinine Estim Creat Clear Calc Est GFR (MDRD) Af Amer Est GFR (MDRD) Non-Af BUN/Creatinine Ratio Glucose Calcium Magnesium Troponin I TSH Free T4 1.09 Thyroxine (T4) 11.3 Free T3 pg/dL 1.9 L Assessment/Plan All Active Problems (Last Reviewed 01/26/19 @ 05:40 by Maximus Ibarra MD) Calcific tendonitis (Acute) Afib (Acute) Syncope (Acute) Vitamin B12 deficiency (dietary) anemia (Acute) Assessment: Calcific tendinitis left shoulder with history of bilateral shoulder pain, possible pain related to fibromyalgia and/or polymyalgia rheumatica as a possible differential. Also underlying autoimmune disease reported. She can do ice or heat. Continue with anti-inflammatories. I did explain the risks of anti-inflammatories. I explained she could use Tylenol as written on the bottle. She did wish to have a cortisone shot for her left shoulder. Risk of the injections explained. She will continue evaluation and treatment for her atrial fibrillation. From an orthopedic standpoint she can be discharged when comfortable and cleared medically. She can follow-up in the office. Sling if needed. Okay for full active and passive range of motion as discussed. If her symptoms persist or progress MRI of the left shoulder certainly could be considered. Procedure: After obtaining appropriate consent patient's left shoulder was prepped with Betadine and alcohol. She underwent an injection with 2 cc of betamethasone and 4 cc of 2% lidocaine plain into the posterior lateral shoulder, painful region, and into the subacromial space. She tolerated that well. After the injection she had significant pain relief and better active and passive range of motion of the shoulder.
[2019-01-26] MEDS: Betamethasone/Betamethasone 30 MG/5 ML Vial 12 MG IU (16:45)
[2019-01-27] VITALS (9 sets, daily range): BP systolic 102–121; BP diastolic 55–65; PULSE 72–95; RESP 16–18; TEMP 36.6–36.7; O2SAT 96–98
[2019-01-27] MEDS: Naproxen 250 MG Tablet PO (06:33)
[2019-01-27] MEDS: Senna/Docusate Sodium 1 Tablet 2 TABLET PO (08:44)
[2019-01-27] MEDS: Aspirin 81 MG TAB.CHEW PO (08:45)
[2019-01-27] MEDS: Famotidine 20 MG Tablet PO (08:45)
[2019-01-27] MEDS: Enoxaparin 40 MG/0.4 ML Syringe SC (08:45)
[2019-01-27] MEDS: Metoprolol(XL)Succ 50 MG Tablet PO (08:46)
[2019-01-27] MEDS: 0.9% NaCl Peripheral Flush Adult/Peds IV (08:47)
[2019-01-27] MEDS: Ketorolac 15 MG/ML Vial IV (08:47)
--- NOTE | 2019-01-27 11:51 | PCM.DC ---
- Discharge Diagnoses Current Active Problems: Current Active and Chronic Problems (Last Reviewed 01/26/19 @ 05:40 by Maximus Ibarra MD) Calcific tendonitis (Acute) Afib (Acute) Syncope (Acute) Vitamin D deficiency (Chronic) Fibromyalgia (Chronic) Chronic pancreatitis (Chronic) Intermittent diarrhea (Chronic) Vitamin B12 deficiency (dietary) anemia (Acute) GERD (gastroesophageal reflux disease) (Chronic) You will use the following diet at home:: Regular Your food should be the consistency of: Regular Discharge Activity: Return to Normal Activity Weight Bearing Status: Weight bearing as tolerated Call your doctor if you observe: Fever of 101 or Higher, Shortness of breath, Dizziness, Fainting spells, Chest pain, Increased palpitations (irregular heartbeat), Uncontrolled pain Allergies/Adverse Reactions: Allergies amoxicillin trihydrate [From Augmentin] Adverse Reaction (Verified 01/25/19 19:44) Vomiting cefuroxime axetil [From Ceftin] Adverse Reaction (Verified 01/25/19 19:44) Vomiting levofloxacin [From Levaquin] Adverse Reaction (Verified 01/25/19 19:44) Vomiting potassium clavulanate [From Augmentin] Adverse Reaction (Verified 01/25/19 19:44) Vomiting Medications to take at Discharge Hydrocodone Bitart/Apap 5-325 [[place] 5/325] 1 tab PO Q6H PRN PRN 4 Days #16 tab 01/27/19 Metoprolol(XL)Succ [Toprol Xl (Beta Mikel)] 50 mg PO DAILY #30 tab 01/27/19 Naproxen [Naprosyn] 250 mg PO TID #14 tab 01/27/19 The following prescriptions were given: Naproxen [Naprosyn] 250 mg PO TID #14 tab Prescription Printed Hydrocodone Bitart/Apap 5-325 [[place] 5/325] 1 tab PO Q6H PRN PRN 4 Days #16 tab PRN Reason: Severe Pain (6-10/10) Prescription Printed Metoprolol(XL)Succ [Toprol Xl (Beta Mikel)] 50 mg PO DAILY #30 tab Prescription Printed Primary Care Physician: Bryan Pritchett MD [Primary Care Provider] - Please follow up with your Primary Care Physician in: 1 week. Test Results: Test results from this visit will be discussed in further detail at your follow-up appointment, if applicable. Please Follow Up With: Patrick Hdez MD When: 1-2 weeks. Please Follow Up With: Franky Charles MD When: 2 weeks.
--- NOTE | 2019-01-27 12:51 | PCM.DC.SUM ---
Discharge Date and Diagnosis Date of Admission: 01/26/19 Date of Discharge: 01/27/19 - Primary Discharge Diagnosis #1 new onset paroxysmal atrial fibrillation. #2 calcific tendinitis of the left shoulder. Status post steroid injection. - Secondary Discharge Diagnosis Chronic Problems (Last Reviewed 01/26/19 @ 05:40 by Maximus Ibarra MD) Vitamin D deficiency (Chronic) Fibromyalgia (Chronic) Chronic pancreatitis (Chronic) Intermittent diarrhea (Chronic) GERD (gastroesophageal reflux disease) (Chronic) Hospital Course and Treatment Imaging Results: Clinical Impression(s) from Imaging Studies Shoulder X-Ray 01/25/19 21:50 IMPRESSION: Suspect calcific tendinitis at 2206 Reported and signed by: Lynda Estrada DO Electronically Signed: Lynda Estrada DO at 22:04 EDT Tel , Service support , Dr. Barnett, cardiology. Dr. Hdez, orthopedic surgery. Operations: None Procedures: - - Left shoulder steroid injection. Summary of Care Provided: Patient was seen and examined on the day of discharge and appeared to be stable for discharge home. After steroid injection of the left shoulder, left shoulder pain improved. This morning, she mentioned that it started to come back again but it is manageable. She has been able to move her right upper extremity with improved range of movement of the left shoulder. She converted back to sinus rhythm and her vital signs has been stable. The patient is a 48 year old F presented to the emergency room because of intractable left shoulder pain which has been going on for couple of months. She was found to have new onset paroxysmal atrial fibrillation. Regarding the left shoulder pain, left shoulder x-ray done and revealed probable calcific tendinitis. Patient was treated with IV pain medications as well as NSAIDs. Orthopedic surgery consulted and she underwent steroid injection of the left shoulder. She was started on naproxen 3 times daily. After steroid injection, left shoulder pain started to improve and range of movement of the left shoulder improved as well. Regarding the atrial fibrillation, it was paroxysmal. Her heart rate went up to 150s and probably her left shoulder pain is contributing. Patient was given IV Cardizem bolus and was started on metoprolol XL. Cardiology consulted. Her serum electrolytes was unremarkable. Apart from this ablation, EKG showed no acute ischemic changes. Troponin was negative. Her TSH was 7.40, both total and free T4 were normal. Free T3 was slightly low. Patient has been taking lots of oral supplements and herbal medicine to improve her thyroid function and probably that is what caused her elevated TSH. She reported some weight gain but she has been tachycardic which makes hypothyroidism unlikely. She expressed no other symptoms or clinical findings of hyperthyroidism or hypothyroidism. 2D echocardiogram revealed normal LV size and function, ejection fraction of 60%, mild tricuspid insufficiency. No significant valvular heart disease. After patient started on metoprolol XL 50 p.o. daily, she converted back to sinus rhythm and heart rate remained stable. Patient discharged home in a stable medical condition, discharged on naproxen to 50 mg p.o. 3 times daily, [place] PRN for pain, discharged on metoprolol XL 50 mg p.o. daily, she was not a candidate for anticoagulation, recommended follow-up with orthopedic surgery in 1 to 2 weeks, follow-up with PCP in 1 week, follow-up with cardiology in 2 weeks. - Physical Exam General: Alert, Oriented x3, Cooperative, No apparent distress HEENT: Atraumatic, PERRLA, EOMI, Normocephalic Oral: Moist Mucosa, No Gingival or Mucosal Lesions/ Ulcerations Neck: Supple, No JVD, Negative Carotid Bruits, Trachea Midline, Thyroid Normal Size and Texture Lungs: Clear to auscultation, Normal air movement, No rhonchi, No wheeze, No rales Cardiovascular: Regular rate, Regular Rhythm, Normal S1, Normal S2, No murmurs, PMI Normal Abdomen: Bowel Sounds Present, Soft, Non Tender, Non-Distended, No Hepato-splenomegaly Extremities: No clubbing, No cyanosis, No edema Skin: No rashes, No breakdown Lymphatic: No Cervical, Supraclavicular, or Inguinal Adenopathy Neurological: Cranial nerves II-XII grossly intact, Neuro grossly intact Psych/Mental Status: Normal Affect, Appropriate Vital Signs Temp Pulse Resp BP Pulse Ox 97.9 F 76 16 121/58 H 98 01/27/19 06:38 01/27/19 11:53 01/27/19 11:53 01/27/19 11:53 01/27/19 11:53 Oxygen Delivery Method Room Air Weight: 216 lb 7.903 oz Body Mass Index (BMI) 32.9 Intake and Output for Last 24 Hours 01/25/19 01/26/19 01/27/19 23:59 23:59 23:59 Intake Total 2720 / 2840 240 / 240 Balance 2720 / 2840 240 / 240 Discharge Activity: Return to Normal Activity Weight Bearing Status: Weight bearing as tolerated Call your doctor if you observe: Fever of 101 or Higher, Shortness of breath, Dizziness, Fainting spells, Chest pain, Increased palpitations (irregular heartbeat), Uncontrolled pain Home Medications: Medications to take at Discharge Hydrocodone Bitart/Apap 5-325 [[place] 5/325] 1 tab PO Q6H PRN PRN 4 Days #16 tab 01/27/19 Metoprolol(XL)Succ [Toprol Xl (Beta Mikel)] 50 mg PO DAILY #30 tab 01/27/19 Naproxen [Naprosyn] 250 mg PO TID #14 tab 01/27/19 Following Prescrptions Were Given to Patient: Naproxen [Naprosyn] 250 mg PO TID #14 tab Prescription Printed Hydrocodone Bitart/Apap 5-325 [[place] 5/325] 1 tab PO Q6H PRN PRN 4 Days #16 tab PRN Reason: Severe Pain (6-02/14) Prescription Printed Metoprolol(XL)Succ [Toprol Xl (Beta Mikel)] 50 mg PO DAILY #30 tab Prescription Printed Primary Care Physician: Bryan Pritchett MD [Primary Care Provider] - Please follow up with your Primary Care Physician in: 1 week. Please Follow Up With: Patrick Hdez MD When: 1-2 weeks. Please Follow Up With: Franky Charles MD When: 2 weeks. Disposition: Home Minutes spent on discharge:: 28 Patient Condition:: Stable Medical Necessity - Tobacco Use Smoking Status: Never smoker Tobacco Use: Non-smoker Meaningful Use Info Meaningful Use Diagnoses (Choose all that apply): None applicable Code Visit OBSV E&M: 20768 Observation care discharge
== END 2019-01-27 11:53 | disposition home or self-care (01) ==
LOC: ED 01-26 00:36 → PCU 01-26 01:39
PROVIDERS: Admitting Provider Hospitalist; Emergency Provider Emergency Medicine; Family Provider Family Medicine; PCP Family Medicine; Visit Provider Hospitalist
DX: I48.0 Paroxysmal atrial fibrillation (principal); M75.32 Calcific tendinitis of left shoulder; K21.9 Gastro-esophageal reflux disease without esophagitis; M79.7 Fibromyalgia; K86.1 Other chronic pancreatitis; I07.1 Rheumatic tricuspid insufficiency; M19.90 Unspecified osteoarthritis, unspecified site
CPT/HCPCS: 36415; 73030; 80048; 83735; 84436; 84439; 84443; 84481; 84484; 85025; 93005; 93306; 96361; 96372; 96374; 96375; 96376; 99218; 99285; J7030; Q9957; A4216; G0378; J0702; J2405

== ENCOUNTER → 2019-11-19 10:25 | Outpatient (CLI) | payer OTHER, SELFPAY ==
[2019-01-26 02:29] VITALS: BMI 32.9
== END ==
PROVIDERS: PCP Family Medicine
DX: T56.94XA Toxic effect of unspecified metal, undetermined, initial encounter (principal); K52.1 Toxic gastroenteritis and colitis; B37.82 Candidal enteritis
CPT/HCPCS: 36415

== ENCOUNTER → 2020-07-07 | Outpatient (CLI) | payer OTHER, SELFPAY ==
[2019-01-26 02:29] VITALS: BMI 32.9
== END | disposition home or self-care (01) ==
LOC: LABSPEC 15:01
PROVIDERS: PCP Family Medicine; Visit Provider Otolaryngology Otolaryngology/Facial Plastic Surgery
DX: J32.9 Chronic sinusitis, unspecified (principal)
CPT/HCPCS: 87070; 87077; 87205

== ENCOUNTER → 2020-08-17 09:03 | Outpatient (CLI) | payer OTHER, SELFPAY ==
[2019-01-26 02:29] VITALS: BMI 32.9
[2020-08-17 13:05] LABS: ALB/GLOB Ratio 0.9 RATIO (0.9-2.4); AST(SGOT) 24 U/L (15-37); Alanine Aminotransfer ALT/SGPT 23 U/L (13-56); Albumin, Serum 3.5 g/dL (3.2-5.0); Alkaline Phosphatase 48 U/L (45-117); Amylase 55 U/L (25-115); Anion Gap 7 (5-15); BUN 9 mg/dL (7-18); Calcium,Total 9.1 mg/dL (8.5-10.1); Chloride 106 mmol/L (98-107); Creatinine, Serum 0.69 mg/dL (0.55-1.02); EST Glomerular Filtration Rate 95 mL/min (>60); Est Glom Filt Rate - Afr Amer 115 mL/min (>60); Free T3 2.5 pg/mL (2.18-3.98); Globulin 3.8 g/dL (2.2-4.2); Glucose 80 mg/dL (74-106); Lipase 140 U/L (73-393); Magnesium 2.3 mg/dL (1.6-2.6); Phosphorus 3.4 mg/dL (2.5-4.9); Potassium 4.2 mmol/L (3.5-5.1); Protein, Total 7.3 g/dL (6.4-8.2); Sodium Level 138 mmol/L (136-145); T4 Free Direct 1.01 ng/dL (0.76-1.46); T4 Total, Thyroxin 14.7 ug/dL (4.8-13.9); Thyroid Stim Hormone (TSH) 2.64 uIU/mL (0.358-3.74)
[2020-08-18 10:16] LABS: Absolute Lymphocyte Count 1.53 X10^3/uL (0.83-4.51); Absolute Neutrophil Count 2.7 X10^3/uL (2.0-7.7); Basophil# 0.06 X10^3/uL; Basophil% 1.2 % (0-1); Eosinophil# 0.33 X10^3/uL; Eosinophils% 6.6 % (0-5); Hematocrit 39.6 % (37-47); Hemoglobin 12.6 g/dL (12.0-15.0); Lymphocyte # 1.53 X10^3/ul (4.0); Lymphocyte % 30.5 % (19-41); Mean Corp Hgb Conc 31.8 g/dL (32-36); Mean Corpuscular Hgb 31.5 pg (27.0-32.0); Mean Platelet Vol. 10.4 fl (6.2-12.0); Monocyte# 0.34 X10^3/uL; Monocyte% 6.8 % (0-10); NRBC Flagged by Analyzer 0 % (0-5); Neutrophil # 2.74 X10^3/uL (2.7-7.7); Neutrophil % 54.7 % (47-70); Platelet Count 281 K/mm3 (150-450); RBC Distribution Width CV 13.2 % (11.6-14.6); RBC Distribution Width SD 48.2 fl (35.1-43.9)
[2020-08-18 10:47] LABS: PTHIN 19.5 pg/mL (18.4-80.1)
[2020-08-18 20:43] LABS: T3 Total - Triiodothyronine 1.67 ng/mL (0.6-1.81); Vitamin D,25 Hydroxy 32.7 ng/mL (29.95-100.01)
[2020-08-19 11:20] LABS: Toxoplasma Gondii IgM 3.6 AU/mL (0.0-7.9)
[2020-08-23 06:37] LABS: QNTFERON TB Mitogen Value > 10.00 IU/mL (.); QNTFERON TB Nil Value 0 IU/mL (.); QNTFERON TB1+ Ag Value 0.03 IU/mL (.); QNTFERON TB2+ Ag Value 0 IU/mL (.)
[2020-08-23 17:28] LABS: QNTIFERON TB Positive Criteria Negative (Negative); Toxoplasma Gondii IgG < 3.0 IU/mL (0.0-7.1)
[2020-08-28 16:08] LABS: Thyroid Peroxidase AB < 9 IU/mL (0-34)
[2020-08-28 16:20] LABS: ASO Titer 48.2 IU/mL (0.0-200.0); Adrenocorticotropic Hormone 21.4 pg/mL (7.2-63.3); T3 Reverse 18.9 ng/dL (9.2-24.1); Thyroglobulin Antibody < 1.0 IU/mL (0.0-0.9); Vitamin A, Retinol 60.9 ug/dL (20.1-62.0)
== END ==
PROVIDERS: PCP Family Medicine
DX: G93.41 Metabolic encephalopathy (principal); E03.9 Hypothyroidism, unspecified; E55.9 Vitamin D deficiency, unspecified; E56.9 Vitamin deficiency, unspecified; E27.9 Disorder of adrenal gland, unspecified; D89.9 Disorder involving the immune mechanism, unspecified; B97.89 Other viral agents as the cause of diseases classified elsewhere; J02.0 Streptococcal pharyngitis; L27.2 Dermatitis due to ingested food; A69.20 Lyme disease, unspecified; K85.90 Acute pancreatitis without necrosis or infection, unspecified; E00-E89 Endocrine, nutritional and metabolic diseases; Z11.1 Encounter for screening for respiratory tuberculosis
CPT/HCPCS: 36415; 80053; 82024; 82140; 82150; 82306; 82330; 82390; 82533; 82652; 83690; 83735; 83970; 84100; 84436; 84439; 84443; 84480; 84481; 84482; 84590; 85025; 86060; 86376; 86480; 86645; 86658; 86664; 86665; 86710; 86738; 86777; 86778; 86800; 87070; 87252

== ENCOUNTER → 2021-09-01 | Outpatient (CLI) | payer SELFPAY ==
--- NOTE | 2021-09-01 08:39 | EKG12_ITS ---
Test Reason : SYNCOPE,PALPS Blood Pressure : / mmHG Vent. Rate : 067 BPM Atrial Rate : 067 BPM P-R Int : 148 ms QRS Dur : 086 ms QT Int : 412 ms P-R-T Axes : 035 047 038 degrees QTc Int : 435 ms Normal sinus rhythm Normal ECG Confirmed by CINDY FUENTES, ALEJANDRO ([id number]), purchase request editor DIONY CONTRERAS ([id number]) on 09/02/2021 9:05:53 AM Referred By: JAMI LUCAS Confirmed By:ALEJANRDO WHITE MD
[2021-09-01 09:39] LABS: Color, Urine Yellow (Yellow); Glucose, Dipstick Normal (Normal); Ketone-Dipstick Negative (Negative); Leukocyte Esterase-Dipstick 100 /ul (Negative); Mucous, Urine 0 SEEN /hpf (<or=2+); Nitrite-Dipstick Negative (Negative); Occult Blood-Urine 10 /ul (Negative); Protein-Dipstick Negative (Negative); Squamous Epithelial Cells - UA 0 SEEN /hpf (5-10); Urine Bilirubin Dipstick Negative (Negative); Urine Clarity Sl. Cloudy (Clear); Urine Urobilinogen Normal (Normal)
[2021-09-01 09:49] LABS: Erythrocyte Sedimentation Rate 14 mm/hr (0-30)
[2021-09-01 09:51] LABS: Absolute Lymphocyte Count 1.43 X10^3/uL (0.83-4.51); Absolute Neutrophil Count 3.3 X10^3/uL (2.0-7.7); Basophil# 0.05 X10^3/uL; Basophil% 0.9 % (0-1); Eosinophil# 0.32 X10^3/uL; Eosinophils% 5.9 % (0-5); Hematocrit 40.9 % (37-47); Hemoglobin 13.2 g/dL (12.0-15.0); Lymphocyte # 1.43 X10^3/ul (0.83-4.51); Lymphocyte % 26.2 % (19-41); Mean Corp Hgb Conc 32.3 g/dL (32-36); Mean Corpuscular Hgb 31.5 pg (27.0-32.0); Mean Corpuscular Volume 97.6 fL (81-99); Monocyte# 0.35 X10^3/uL; Monocyte% 6.4 % (0-10); NRBC Flagged by Analyzer 0 % (0-5); Neutrophil # 3.29 X10^3/uL (2.7-7.7); Neutrophil % 60.4 % (47-70); Platelet Count 256 K/mm3 (150-450); RBC Distribution Width CV 13.4 % (11.6-14.6); RBC Distribution Width SD 48.7 fl (35.1-43.9); Red Blood Count 4.19 M/mm3 (4.2-5.4); White Blood Count 5.5 K/mm3 (4.4-11.0)
[2021-09-01 09:52] LABS: Bacteria 2+ /hpf (None Seen); Red Blood Cells-Urine 0-5 SEEN /hpf (0-5); White Blood Cells 5-10 SEEN /hpf (0-5)
[2021-09-01 10:08] LABS: Hemoglobin A1c 5.2 % (3.8-5.6)
[2021-09-01 10:27] LABS: T3 Total - Triiodothyronine 1.87 ng/mL (0.6-1.81); Vitamin D,25 Hydroxy 44.7 ng/mL
[2021-09-01 10:32] LABS: ALB/GLOB Ratio 0.8 RATIO (0.9-2.4); AST(SGOT) 24 U/L (15-37); Alanine Aminotransfer ALT/SGPT 21 U/L (13-56); Albumin, Serum 3.4 g/dL (3.2-5.0); Alkaline Phosphatase 51 U/L (45-117); Anion Gap 9 (5-15); BUN 9 mg/dL (7-18); BUN/Creat Ratio 11.2 RATIO (10-20); CRP 8.67 mg/L (0.0-3.0); Calcium,Total 8.4 mg/dL (8.5-10.1); Chloride 104 mmol/L (98-107); Cholesterol 264 mg/dL (200); EST Glomerular Filtration Rate 80 mL/min (>60); Est Glom Filt Rate - Afr Amer 96 mL/min (>60); Ferritin 40 ng/mL (8-252); Free T3 2.4 pg/mL (2.18-3.98); Globulin 4.1 g/dL (2.2-4.2); Glucose 83 mg/dL (74-106); High Density Lipoprotein 66 mg/dL; Iron 91 ug/dL (50-170); Iron Binding Capacity,Total 452 ug/dL (250-450); Magnesium 2.2 mg/dL (1.6-2.6); Phosphorus 2.7 mg/dL (2.5-4.9); Potassium 3.6 mmol/L (3.5-5.1); Protein, Total 7.5 g/dL (6.4-8.2); Rheumatoid Factor < 10.0 IU/mL (<15); Sodium Level 137 mmol/L (136-145); T3 Uptake 23 % (30-39); T4 Total, Thyroxin 16.4 ug/dL (4.8-13.9); T7 / Free Thyroxin Index 3.8 (1.4-4.5); Thyroid Stim Hormone (TSH) 3.89 uIU/mL (0.358-3.74); Triglycerides 187 mg/dL; Very Low Density Lipoprotein 37 mg/dL (5-40)
[2021-09-03 14:09] LABS: SJOGREN'S Anti-SS-A test < 0.2 AI (0.0-0.9); SJOGREN'S Anti-SS-B test < 0.2 AI (0.0-0.9); Vitamin D 1,25-Dihydroxy 57.2 pg/mL (19.9-79.3)
[2021-09-03 18:08] LABS: ANTINUCLEAR ANTIBODIES DIRECT Negative (Negative)
[2021-09-10 18:08] LABS: Thyroid Peroxidase AB 10 IU/mL (0-34)
[2021-09-10 20:09] LABS: ASO Titer 47.1 IU/mL (0.0-200.0); Copper, Serum or Plasma 251 ug/dL (80-158); Thyroglobulin Antibody < 1.0 IU/mL (0.0-0.9); Vitamin A, Retinol 70.2 ug/dL (20.1-62.0)
== END | disposition home or self-care (01) ==
PROVIDERS: PCP Internal Medicine
DX: Q07.9 Congenital malformation of nervous system, unspecified (principal); D89.89 Other specified disorders involving the immune mechanism, not elsewhere classified; N17.9 Acute kidney failure, unspecified; I51.4 Myocarditis, unspecified; K51.80 Other ulcerative colitis without complications; I48.91 Unspecified atrial fibrillation; E27.9 Disorder of adrenal gland, unspecified; E78.5 Hyperlipidemia, unspecified; D64.9 Anemia, unspecified; E03.9 Hypothyroidism, unspecified; E55.9 Vitamin D deficiency, unspecified; R73.09 Other abnormal glucose; E63.8 Other specified nutritional deficiencies; L27.2 Dermatitis due to ingested food; B34.9 Viral infection, unspecified; R19.5 Other fecal abnormalities; A04.72 Enterocolitis due to Clostridium difficile, not specified as recurrent; R55 Syncope and collapse; R42 Dizziness and giddiness; R06.02 Shortness of breath; R00.2 Palpitations; J02.0 Streptococcal pharyngitis; N93.9 Abnormal uterine and vaginal bleeding, unspecified; R00.0 Tachycardia, unspecified; R07.9 Chest pain, unspecified; R00.8 Other abnormalities of heart beat; R01.1 Cardiac murmur, unspecified; R53.1 Weakness; R68.89 Other general symptoms and signs; I95.9 Hypotension, unspecified
CPT/HCPCS: 80053; 80061; 81001; 82306; 82525; 82533; 82652; 82728; 83036; 83540; 83550; 83735; 84100; 84436; 84439; 84443; 84479; 84480; 84481; 84590; 85025; 85652; 86038; 86060; 86140; 86235; 86376; 86431; 86769; 86800; 87086; 87088; 87880; 93005

== ENCOUNTER → 2021-09-03 | Outpatient (CLI) | payer SELFPAY | END | disposition home or self-care (01) | PROVIDERS: PCP Internal Medicine | DX: D89.9 Disorder involving the immune mechanism, unspecified (principal); Q07.9 Congenital malformation of nervous system, unspecified; N17.9 Acute kidney failure, unspecified; E27.9 Disorder of adrenal gland, unspecified; E88.9 Metabolic disorder, unspecified; R73.09 Other abnormal glucose; E78.5 Hyperlipidemia, unspecified; E03.9 Hypothyroidism, unspecified; R79.89 Other specified abnormal findings of blood chemistry; R55 Syncope and collapse; R42 Dizziness and giddiness; R06.02 Shortness of breath; R00.2 Palpitations; R19.5 Other fecal abnormalities; Z13.0 Encounter for screening for diseases of the blood and blood-forming organs and certain disorders involving the immune mechanism | CPT/HCPCS: 82274; 83630; 87177; 87209; 87329; 87506 ==

== ENCOUNTER → 2021-11-16 | Outpatient (CLI) | payer SELFPAY ==
[2021-11-15 08:22] LABS: Bacteria 0 SEEN /hpf (None Seen); Mucous, Urine 0 SEEN /hpf (<or=2+); Red Blood Cells-Urine 0 SEEN /hpf (0-5)
[2021-11-16 09:29] LABS: Color, Urine Yellow (Yellow); Glucose, Dipstick Normal (Normal); Ketone-Dipstick Negative (Negative); Leukocyte Esterase-Dipstick 100 /ul (Negative); Nitrite-Dipstick Negative (Negative); Occult Blood-Urine Negative /ul (Negative); Protein-Dipstick Negative (Negative); Urine Bilirubin Dipstick Negative (Negative); Urine Clarity Sl. Cloudy (Clear); Urine Urobilinogen Normal (Normal)
[2021-11-16 09:34] LABS: Absolute Lymphocyte Count 1.58 X10^3/uL (0.83-4.51); Absolute Neutrophil Count 3.5 X10^3/uL (2.0-7.7); Basophil# 0.05 X10^3/uL; Basophil% 0.9 % (0-1); Eosinophil# 0.35 X10^3/uL; Eosinophils% 6.1 % (0-5); Hematocrit 38.4 % (37-47); Hemoglobin 12.5 g/dL (12.0-15.0); Lymphocyte # 1.58 X10^3/ul (0.83-4.51); Lymphocyte % 27.3 % (19-41); Mean Corp Hgb Conc 32.6 g/dL (32-36); Mean Corpuscular Hgb 31.3 pg (27.0-32.0); Mean Corpuscular Volume 96.2 fL (81-99); Mean Platelet Vol. 10.4 fl (6.2-12.0); Monocyte% 5.2 % (0-10); NRBC Flagged by Analyzer 0 % (0-5); Neutrophil # 3.49 X10^3/uL (2.7-7.7); Neutrophil % 60.3 % (47-70); Platelet Count 240 K/mm3 (150-450); RBC Distribution Width CV 13.4 % (11.6-14.6); Red Blood Count 3.99 M/mm3 (4.2-5.4); White Blood Count 5.8 K/mm3 (4.4-11.0)
[2021-11-16 09:52] LABS: Squamous Epithelial Cells - UA 5-10 SEEN /hpf (5-10); White Blood Cells 10-25 SEEN /hpf (0-5)
[2021-11-16 09:55] LABS: Vitamin D,25 Hydroxy 40.6 ng/mL
[2021-11-16 10:03] LABS: Progesterone Level < 0.21 ng/mL (See Comment)
[2021-11-16 10:19] LABS: ALB/GLOB Ratio 0.8 RATIO (0.9-2.4); AST(SGOT) 19 U/L (15-37); Alanine Aminotransfer ALT/SGPT 20 U/L (13-56); Albumin, Serum 3.4 g/dL (3.2-5.0); Alkaline Phosphatase 51 U/L (45-117); Amylase 55 U/L (25-115); Anion Gap 9 (5-15); BUN 9 mg/dL (7-18); BUN/Creat Ratio 12.1 RATIO (10-20); Calcium,Total 9.1 mg/dL (8.5-10.1); Chloride 107 mmol/L (98-107); Creatinine, Serum 0.75 mg/dL (0.55-1.02); EST Glomerular Filtration Rate 87 mL/min (>60); Est Glom Filt Rate - Afr Amer 105 mL/min (>60); Estradiol < 11.0 pg/mL; Ferritin 32 ng/mL (8-252); Globulin 4.3 g/dL (2.2-4.2); Glucose 84 mg/dL (74-106); Iron 107 ug/dL (50-170); Iron Binding Capacity,Total 496 ug/dL (250-450); Lipase 194 U/L (73-393); Magnesium 2.2 mg/dL (1.6-2.6); PERCENT IRON SATURATION 21.6 % (15.0-55.0); Phosphorus 2.9 mg/dL (2.5-4.9); Potassium 3.4 mmol/L (3.5-5.1); Prolactin 10.7 ng/mL; Protein, Total 7.7 g/dL (6.4-8.2); Sodium Level 139 mmol/L (136-145); Thyroid Stim Hormone (TSH) 3.59 uIU/mL (0.358-3.74)
[2021-11-18 15:56] LABS: Vitamin D 1,25-Dihydroxy 77.5 pg/mL (24.8-81.5)
[2021-11-20 22:07] LABS: Ceruloplasmin 49.5 mg/dL (19.0-39.0); DHEA Sulfate 25.6 ug/dL (41.2-243.7); Testosterone, % Free 1.61 % (0.50-2.80); Testosterone, Free < 0.05 ng/dL (0.10-0.85); Testosterone, Total < 3 ng/dL (4-50); Thyroxin Bind Glob (TBG) 46 ug/mL (13-39)
[2021-11-21 20:21] LABS: Adrenocorticotropic Hormone 18.6 pg/mL (7.2-63.3); Copper, Serum or Plasma 196 ug/dL (80-158); Vitamin A, Retinol 63.5 ug/dL (20.1-62.0)
== END | disposition home or self-care (01) ==
PROVIDERS: PCP Internal Medicine
DX: E27.9 Disorder of adrenal gland, unspecified (principal); Q07.9 Congenital malformation of nervous system, unspecified; E22.1 Hyperprolactinemia; E34.9 Endocrine disorder, unspecified; E00-E89 Endocrine, nutritional and metabolic diseases; E63.8 Other specified nutritional deficiencies; E88.9 Metabolic disorder, unspecified; D64.9 Anemia, unspecified; E30.9 Disorder of puberty, unspecified; E55.9 Vitamin D deficiency, unspecified; E56.9 Vitamin deficiency, unspecified; K85.90 Acute pancreatitis without necrosis or infection, unspecified; N93.9 Abnormal uterine and vaginal bleeding, unspecified
CPT/HCPCS: 36415; 80053; 81001; 82024; 82150; 82306; 82390; 82525; 82627; 82652; 82670; 82728; 83540; 83550; 83690; 83735; 84100; 84144; 84146; 84270; 84402; 84403; 84442; 84443; 84590; 85025; 87086; 87088; 82626

== ENCOUNTER 2023-12-08 18:32 | Emergency (ER) | payer OTHER, SELFPAY ==
[2023-12-08 18:33] VITALS: BP 139/80; PULSE 76; RESP 15; TEMP 36.4; O2SAT 97; BMI 28.4
--- NOTE | 2023-12-08 18:53 | EX.ED.UPPERE ---
HPI History of Present Illness Chief Complaint: Upper Extremity Injury [facility] Medical History (Updated 01/26/19 @ 10:[address] Cristóbal Barnett MD) Chronic pancreatitis Home Medications ?Medication ?Instructions ?Recorded ?Last Taken ?Type metoprolol succinate 50 mg 50 mg PO DAILY #30 tabs 01/27/19 Unknown Rx tablet,extended release 24 hr naproxen 250 mg tablet 250 mg PO TID #14 tabs 01/27/19 Unknown Rx Allergy/AdvReac Type Severity Reaction Status Date / Time amoxicillin trihydrate (From AdvReac Vomiting Verified 12/08/23 18:35 Augmentin) cefuroxime axetil (From AdvReac Vomiting Verified 12/08/23 18:35 Ceftin) levofloxacin (From Levaquin) AdvReac Vomiting Verified 12/08/23 18:35 potassium clavulanate (From AdvReac Vomiting Verified 12/08/23 18:35 Augmentin) Social History Smoking Status: Never smoker EXAM Physical Exam Const Vital Signs: 12/08/23 18:33 Temperature 97.5 F L Temperature Source Temporal Pulse Rate 76 Respiratory Rate 15 Blood Pressure 139/80 H Blood Pressure Mean 99 Pulse Ox 97 Oxygen Delivery Method Room Air MDM MDM MDM Narrative Medical decision making narrative: HISTORY OF PRESENT ILLNESS: 53-year-old female presents with concern for burning and tingling in her fingertips. States she got bad news last night about tingling in her fingertips. Notes i this morning burning developed as well. She further states REVIEW OF SYSTEMS: Pertinent positives: Paresthesias Pertinent negatives: Loss of sensation, loss of coordination PHYSICAL EXAM: Nursing triage notes reviewed, Vital signs reviewed Constitutional: please see mdm HENT: MMM Eyes: Pupils equal round and reactive to light, Extraocular muscles intact Neck: No stridor, no JVD, full neck ROM Lungs: Clear to auscultation, No wheezing or rales. No increased work of breathing, no conversational dyspnea, no accessory muscle use, no nasal flaring. No respiratory distress noted Heart: Regular rate and rhythm, No murmurs, No rubs and No gallops, 2+ distal pulses (radial, femoral, posterior tibial) in all extremities Abdomen: Soft, there is no tenderness, rigidity, rebound or guarding, no obvious peritoneal signs, no palpable pulsatile abdominal masses, no auscultated abdominal bruit : No CVAT Extremities: No edema Neuro: No focal neurological deficits, cranial nerves II through XII intact, 5/5 strength in all extremities. Intact sensation to light touch in all extremities, 2+ reflexes bilateral patella tendons. Normal gait. No ataxia. Intact 5/5 strength with ok sign (median), intact finger abduction (ulnar) intact wrist extension (radial n). Intact sensation in the radial, ulnar, and median nerve distributions. Skin: No rash or lesions noted MEDICAL DECISION MAKING: Chief Complaint: Paresthesias External records reviewed: Imaging studies reviewed: Factors affecting care: History of B12 deficiency, fibromyalgia Social determinants of health: none History obtained from others: none Consults: none MDM Narrative: Patient was initially hemodynamically stable, afebrile and nontoxic-appearing. Exam without focal neurologic deficit. No carotid bruits. I considered the following differential diagnosis: Arterial dissection, electrolyte disturbance ALL IMAGES (IF OBTAINED) HAVE BEEN PERSONALLY REVIEWED AND INTERPRETED BY MYSELF. CT of the neck shows no evidence of intracranial dissection or other bony abnormality the cervical spine BMP with mild hypokalemia at 3.4 this was replaced with oral potassium. No other significant electrolyte abnormalities. CBC with no leukocytosis, mild anemia, no thrombocytopenia noted Labs images were unremarkable. Potassium was replaced. Patient appropriate for discharge home. The patient and/or family, caregivers express understanding. The patient and/or family, caregivers agrees with the plan. Shared decision making: I will have a discussion with the patient and or visitors regarding risk/benefits of further testing or admission. They will be made aware of of the risk/benefits inherent in this decision they will be given the opportunity to voice understanding. Total critical care time today provided was at least 0 [] minutes. This excludes separately billable procedures. Critical care time (if documented) is secondary to the patient having high probability of clinically significant/life threatening deterioration in the patient's condition which required my urgent intervention. Impression: 1. Paresthesia Dispo: discharge home This note was generated with [employer] dictation software. It may contain incorrect words, spelling, and punctuation that were not noted in review of the chart prior to signing. Discharge Plan Triage Chief Complaint: Upper Extremity Injury ED Provider: Jose Nelson Dx/Rx/DC Orders Prescriptions: No Action metoprolol succinate 50 MG tablet 50 mg PO DAILY Qty: 30 0RF naproxen 250 MG tablet 250 mg PO TID Qty: 14 0RF Primary Care Provider: Dorina Johnson Referrals: Dorina Johnson MD [Primary Care Provider] - Print Language: Yoruba
--- NOTE | 2023-12-08 19:08 | CT_ITS ---
INDICATION: LUE paresthesias EXAMINATION: CTA NECK - CTA Neck WO/W Contrast Injection TECHNIQUE: Routine carotid CT angiogram protocol was performed without and with IV contrast. NASCET criteria using the distal ICAs for comparison were used for evaluation of stenoses. 3D reconstructions were reviewed. The protocol utilizes one or more of the following dose reduction techniques: automated exposure control, adjustment of mA and/or kV according to patient size,and/or use of iterative reconstruction technique. IV Contrast dosage and agent: RADIATION DOSAGE (If Supplied By Facility): CTDIvol = ( 25.15 ) mGy, DLP = ( 580.72 ) mGycm COMPARISON: FINDINGS: AORTIC ARCH AND BRANCHES: Normal anatomy, patent. RIGHT CCA: No occlusion, significant stenosis or dissection. RIGHT ICA: No occlusion, significant stenosis or dissection. Limited visualization of the carotid bulb and proximal ICA level due to motion. LEFT CCA: No occlusion, significant stenosis or dissection. LEFT ICA: No occlusion, significant stenosis or dissection.Limited visualization of the carotid bulb and proximal ICA level due to motion. RIGHT VERTEBRAL ARTERY: No occlusion, significant stenosis or dissection. LEFT VERTEBRAL ARTERY: No occlusion, significant stenosis or dissection. NECK SOFT TISSUES: Unremarkable. LUNG APICES: Clear. BONES: Unremarkable. CT/CTA Neck W/WO Contrast IMPRESSION: Negative CTA Neck. Limited visualization of the bilateral carotid bulb and proximal ICA level due to motion. Electronically Signed: Dusty Jeong DO at 21:46 EDT Reading Location ID and State: [facility] / [place] Tel [phone], Service support ,
[2023-12-08 19:47] LABS: Absolute Lymphocyte Count 1.99 X10^3/uL (0.83-4.51); Absolute Neutrophil Count 3.1 X10^3/uL (2.0-7.7); Basophil# 0.05 X10^3/uL; Basophil% 0.8 % (0-1); Hematocrit 35.2 % (37-47); Hemoglobin 11.7 g/dL (12.0-15.0); Lymphocyte # 1.99 X10^3/ul (0.83-4.51); Lymphocyte % 33.4 % (19-41); Mean Corp Hgb Conc 33.2 g/dL (32-36); Mean Corpuscular Hgb 30.8 pg (27.0-32.0); Mean Corpuscular Volume 92.6 fL (81-99); Monocyte# 0.52 X10^3/uL; Monocyte% 8.7 % (0-10); NRBC Flagged by Analyzer 0 % (0-5); Neutrophil # 3.08 X10^3/uL (2.7-7.7); Neutrophil % 51.9 % (47-70); Platelet Count 206 K/mm3 (150-450); RBC Distribution Width CV 13.6 % (11.6-14.6); RBC Distribution Width SD 45.8 fl (35.1-43.9)
[2023-12-08 19:56] LABS: Anion Gap 6 (5-15); BUN 11 mg/dL (7-18); BUN/Creat Ratio 11.7 RATIO (10-20); Calcium,Total 8.7 mg/dL (8.5-10.1); Chloride 114 mmol/L (98-107); Creatinine, Serum 0.94 mg/dL (0.55-1.02); EST Glomerular Filtration Rate 66 mL/min (>60); Est Glom Filt Rate - Afr Amer 80 mL/min (>60); Estimated Creatinine Clearance 78.06 ml/min; Glucose 106 mg/dL (74-106); Potassium 3.4 mmol/L (3.5-5.1); Sodium Level 143 mmol/L (136-145)
[2023-12-08] MEDS: Potassium Chloride Oral Tablet 20 MEQ 40 MEQ PO (20:52)
== END 2023-12-08 22:12 | disposition home or self-care (01) ==
PROVIDERS: Emergency Provider Emergency Medicine; PCP Internal Medicine; Visit Provider Emergency Medicine
DX: R20.2 Paresthesia of skin (principal); E87.6 Hypokalemia
CPT/HCPCS: 70498; 80048; 85025; 99282; Q9967; A4216